=== PATIENT | female | born 1955 | race Caucasian/White ===

== ENCOUNTER 2016-04-27 10:21 | Emergency (ER) | payer BC, OTHER ==
[~2016-04-27] VITALS: Ht 157.5 cm; Wt 58.6 kg
[2016-04-27 10:31] VITALS: BP 121/77; PULSE 75; RESP 16; TEMP 98.1; O2SAT 100
[2016-04-27] MEDS ORDERED: BUSP15TA PO (10:46)
[2016-04-27] MEDS ORDERED: LEVE500 PO (10:46)
[2016-04-27] MEDS ORDERED: AMIT25TA9 PO (10:46)
[2016-04-27] MEDS ORDERED: NAPR500 PO (10:46)
[2016-04-27] MEDS ORDERED: LEXA20TA PO (10:46)
[2016-04-27] MEDS ORDERED: DILA100C PO (10:46)
[2016-04-27] MEDS ORDERED: ERYTOIN10 RIGHT EYE (11:15)
--- NOTE | 2016-04-27 11:17 | PD ---
HPI Chief Complaint: Eye Problems/Injury Time Seen by Provider: 11:15 Travel History International Travel<30 days: No Contact w/Intl Traveler<30days: No Traveled to known affect area: No History of Present Illness HPI 60-year-old female presents to the emergency department for evaluation of right eye itching and burning for 4 days. Patient states that she has some swelling of her upper eyelid and thought she had a stye so she used some over-the- counter stye cream which did not improve her symptoms. She states that she is concerned she may have pinkeye as her left eye started to feel irritated as well. States that she did have some increased tearing of the right eye. Denies any blurred vision, decreased vision, eye pain, photophobia, cough or cold symptoms. She does not wear contact lenses. No other complaints. PFSH Past Medical History Arthritis: Yes Anxiety: Yes Depression: Yes Chemotherapy: No Medical other: Yes (chronic neck and back pain) Migraines: Yes Radiation Therapy: Yes Seizures: Yes Tetanus Vaccination: < 5 Years Influenza Vaccination: Yes ?: Not Menopausal: Yes Past Surgical History Gynecologic Surgery: Yes (left breast lumpectomy r/t breast cancer 1999) Hysterectomy: Yes Joint Replacement: Yes (right knee) Other Surgery: Yes (neck and back surgery) Social History Alcohol Use: Yes (occas. wine) Tobacco Use: Yes (1 ppd) Substance Use: Yes (states smoke weed occas.) Allergies-Medications (Allergen,Severity, Reaction): Coded Allergies: Penicillin (Verified Allergy, Severe, throat swelling, 04/27/16) Reported Meds & Prescriptions Reported Meds & Active Scripts Active Erythromycin Opth Oint 5 Mg/Gm Oint 1 Applic RIGHT EYE BID Reported Naprosyn (Naproxen) 500 Mg Tab 500 Mg PO BID PRN Lexapro (Escitalopram Oxalate) 20 Mg Tab 20 Mg PO DAILY Amitriptyline (Amitriptyline HCl) 25 Mg Tab 25 Mg PO HS Buspirone (Buspirone HCl) 15 Mg Tab 15 Mg PO BID Keppra (Levetiracetam) 500 Mg Tab 500 Mg PO BID Dilantin (Phenytoin Extended) 100 Mg Cap 200 Mg PO BID Review of Systems Except as stated in HPI: all other systems reviewed are Neg Physical Exam Narrative GENERAL: Well-nourished and well-developed pleasant female patient in no acute distress who is nontoxic appearing. SKIN: Warm and dry. HEAD: Normocephalic and atraumatic. EYES: Internal stye to right upper eyelid with some mild erythema of the upper eyelid. No injection, drainage, or hyphema noted. PERRLA. EOMI. visual acuity is equal bilaterally. ENT: No nasal drainage noted. Oropharynx is clear. NECK: Supple and the trachea is midline. CARDIOVASCULAR: Regular rate and rhythm. RESPIRATORY: Breath sounds are equal bilaterally with no accessory muscle use, wheezing, rhonchi, or crackles. MUSCULOSKELETAL: No obvious deformities, swelling, cyanosis, or ecchymosis is present throughout the upper and lower extremities. Patient has full range of motion without any signs of neurovascular compromise. NEUROLOGICAL: Awake, alert, and oriented. Normal speech and gait. Cranial nerves are grossly intact. Data Data Last Documented VS Vital Signs Date Time Temp Pulse Resp B/P Pulse Ox O2 Delivery O2 Flow Rate FiO2 04/27/16 10:40 73 16 04/27/16 10:31 98.1 121/77 100 MDM Medical Decision Making Medical Screen Exam Complete: Yes Emergency Medical Condition: Yes Differential Diagnosis Hordeolum versus chalazion versus conjunctivitis Narrative Course 60-year-old female presents to the emergency department for evaluation of right eye burning and itching. Patient is afebrile, vital signs are stable. She has a stye to her right upper eyelid. We'll give the patient erythromycin ointment and discussed supportive care. 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 Patient verbalizes understanding and agreement with treatment plan. Diagnosis Primary Impression: Hordeolum of right eye Qualified Code: H00.021 - Hordeolum internum of right upper eyelid Referrals: Primary Care Physician Patient Instructions: General Instructions Additional Instructions: Apply warm compresses. Use ointment as prescribed. Follow-up with your Primary Care Physician or an drill press set up operator radial if symptoms persist. Return to the ED for any acute worsening of symptoms. Med/Other Pt SpecificInfo: Prescription(s) given Scripts Erythromycin Opth Oint 5 Mg/Gm Oint1 Applic RIGHT EYE BID #1 TUBE Ref 0 Prov:Nura Black MD 04/27/16 Disposition: 01 DISCHARGE HOME Condition: Stable Vickie Estrella Apr 27, 2016 11:17
== END 2016-04-27 11:24 | disposition home or self-care (01) ==
LOC: PHEFT 10:21
DX: H00.021 Hordeolum internum right upper eyelid (principal); F17.200 Nicotine dependence, unspecified, uncomplicated; Z87.39 Personal history of other diseases of the musculoskeletal system and connective tissue; Z86.59 Personal history of other mental and behavioral disorders; Z86.69 Personal history of other diseases of the nervous system and sense organs
CPT/HCPCS: 99283

== ENCOUNTER 2016-05-05 10:53 | Emergency (ER) | payer OTHER ==
[~2016-05-05 10:53] MED LIST: AMIT25TA9 PO; BUSP15TA PO; DILA100C PO; ERYTOIN10 RIGHT EYE; LEVE500 PO; LEXA20TA PO; NAPR500 PO
[2016-05-05 11:11] VITALS: BP 138/81; PULSE 89; RESP 20; TEMP 99.2; O2SAT 97
[2016-05-05] MEDS ORDERED: methylPREDNISolone SOD SUCC 125 MG/2 ML VIAL IVP ONE (11:30)
[2016-05-05] MEDS ORDERED: SODIUM CHLORIDE 0.9% FLUSH 5 ML FLUSH IVF PRN (11:30)
--- NOTE | 2016-05-05 11:33 | PD ---
HPI . Chest congestion Chief Complaint: Respiratory Symptoms Time Seen by Provider: 11:24 Travel History International Travel<30 days: No Contact w/Intl Traveler<30days: No Traveled to known affect area: No History of Present Illness HPI Patient presents with about a 2 day history of cough and congestion. She has associated fevers and chills, myalgias, malaise, poor appetite. She's been using some [id number] medications without relief. PFSH Past Medical History Arthritis: Yes Anxiety: Yes Depression: Yes Chemotherapy: No Migraines: Yes Radiation Therapy: Yes Seizures: Yes Influenza Vaccination: Yes ?: Not Menopausal: Yes Past Surgical History Gynecologic Surgery: Yes (left breast lumpectomy r/t breast cancer 1999) Hysterectomy: Yes Joint Replacement: Yes (right knee) Other Surgery: Yes (neck and back surgery) Social History Alcohol Use: Yes (occas. wine) Tobacco Use: Yes (1 ppd) Substance Use: No Allergies-Medications (Allergen,Severity, Reaction): Coded Allergies: Penicillin (Verified Allergy, Severe, throat swelling, 04/27/16) Reported Meds & Prescriptions Reported Meds & Active Scripts Active Reported Lexapro (Escitalopram Oxalate) 20 Mg Tab 20 Mg PO DAILY Buspirone (Buspirone HCl) 15 Mg Tab 15 Mg PO BID Keppra (Levetiracetam) 500 Mg Tab 500 Mg PO BID Dilantin (Phenytoin Extended) 100 Mg Cap 200 Mg PO BID Review of Systems Except as stated in HPI: all other systems reviewed are Neg General / Constitutional: Positive: Fever, Chills, Other (malaise) HENT: Positive: Congestion Respiratory: Positive: Cough, Shortness of Breath, Wheezing Gastrointestinal: Positive: Loss of Appetite Musculoskeletal: Positive: Myalgias Physical Exam Narrative GENERAL: Healthy-appearing woman asthmatic sounding cough. SKIN: Warm and dry. HEAD: Atraumatic. Normocephalic. EYES: Pupils equal and round. ENT: No nasal bleeding or discharge. Mucous membranes pink and moist. NECK: Trachea midline. Neck is supple. CARDIOVASCULAR: Regular rate and rhythm. Heart sounds are normal. RESPIRATORY: No accessory muscle use. Lungs have good air movement with diffuse expiratory wheezing. Some of the wheezing clears with coughing. GASTROINTESTINAL: Abdomen soft, non-tender, nondistended. MUSCULOSKELETAL: No obvious deformities. No edema. NEUROLOGICAL: Awake and alert. No obvious cranial nerve deficits. Motor grossly within normal limits. Normal speech. PSYCHIATRIC: Appropriate mood and affect; insight and judgment normal. Data Data Last Documented VS Vital Signs Date Time Temp Pulse Resp B/P Pulse Ox O2 Delivery O2 Flow Rate FiO2 05/05/16 11:44 83 18 99 Room Air 05/05/16 11:11 99.2 138/81 Orders Complete Blood Count With Diff (05/05/16 11:27) Basic Metabolic Panel (Bmp) (05/05/16 11:27) Iv Access Insert/Monitor (05/05/16 11:27) Chest, Single Ap (05/05/16 11:27) Sodium Chloride 0.9% Flush (Ns Flush) (05/05/16 11:30) Methylprednisolone So Succ Inj (Solumedr (05/05/16 11:30) Albuterol-Ipratropium Neb (Duoneb Neb) (05/05/16 11:30) Labs Laboratory Tests Test 05/05/16 11:32 White Blood Count 11.6 TH/MM3 Red Blood Count 4.13 MIL/MM3 Hemoglobin 13.8 GM/DL Hematocrit 40.7 % Mean Corpuscular Volume 98.5 FL Mean Corpuscular Hemoglobin 33.4 PG Mean Corpuscular Hemoglobin 34.0 % Concent Red Cell Distribution Width 12.6 % Platelet Count 210 TH/MM3 Mean Platelet Volume 9.7 FL Neutrophils (%) (Auto) 74.1 % Lymphocytes (%) (Auto) 16.8 % Monocytes (%) (Auto) 6.2 % Eosinophils (%) (Auto) 0.5 % Basophils (%) (Auto) 2.4 % Neutrophils # (Auto) 8.6 TH/MM3 Lymphocytes # (Auto) 1.9 TH/MM3 Monocytes # (Auto) 0.7 TH/MM3 Eosinophils # (Auto) 0.1 TH/MM3 Basophils # (Auto) 0.3 TH/MM3 CBC Comment DIFF FINAL Differential Comment Sodium Level 143 MEQ/L Potassium Level 3.4 MEQ/L Chloride Level 107 MEQ/L Carbon Dioxide Level 28.4 MEQ/L Anion Gap 8 MEQ/L Blood Urea Nitrogen 9 MG/DL Creatinine 0.51 MG/DL Estimat Glomerular Filtration 123 ML/MIN Rate Random Glucose 98 MG/DL Calcium Level 9.1 MG/DL MDM Medical Decision Making Medical Screen Exam Complete: Yes Emergency Medical Condition: Yes Differential Diagnosis Differential diagnosis includes but is not limited to viral respiratory illness , bronchitis, pneumonia, allergies, CHF, asthma/COPD. Narrative Course Patient presents for evaluation and treatment of cough. Clinically, she has bronchitis. Last Impressions Chest X-Ray 05/05/16 1127 Signed Impressions: Service Date/Time: Thursday, May 05, 2016 11:36 - CONCLUSION: No acute disease. Ernesto Garcia MD The chest x-ray was independently viewed by me. CBC & BMP Diagram 05/05/16 11:32 Diagnosis Primary Impression: Bronchitis Patient Instructions: Acute Bronchitis (ED), General Instructions Med/Other Pt SpecificInfo: Prescription(s) given Scripts Promethazine-Codeine Liq 6.25-10 Mg/5 Ml Syrp10 Ml PO Q6H PRN (cough) #180 ML Ref 0 Prov:Ilana Jj MD 05/05/16 Guaifenesin ER 12 HR 1,200 Mg Taber1,200 Mg PO BID #30 TAB Ref 0 Prov:Ilana Jj MD 05/05/16 Albuterol 18 GM Inh (Ventolin Hfa 18 GM Inh)90 Mcg/Act Aer2 Puff INH Q4H PRN ( SHORTNESS OF BREATH) #1 INHALER Ref 0 Prov:Ilana Jj MD 05/05/16 Prednisone (48) 10 mg tab Dose Pack 10 Mg Dspk10 Mg PO DIRECTED #1 DSPK Ref 0 Prov:Ilana Jj MD 05/05/16 Disposition: 01 DISCHARGE HOME Condition: Stable Ilana Jj MD May 05, 2016 11:33
[2016-05-05] MEDS: RESP: ALBUTEROL 2.5 MG/IPRATROPIUM 0.5 MG NEB (SCH) INH ×2 (11:37→11:41)
[2016-05-05 11:44] VITALS: PULSE 83; RESP 18; O2SAT 99
[2016-05-05 11:55] LABS: AUTOMATED NEUTROPHIL # 8.6 TH/MM3 (1.8-7.7); BASOPHIL # 0.3 TH/MM3 (0-0.2); BASOPHIL % 2.4 % (0.0-2.0); EOSINOPHIL # 0.1 TH/MM3 (0-0.4); EOSINOPHIL % 0.5 % (0.0-4.0); HEMATOCRIT 40.7 % (35.0-46.0); LYMPH % 16.8 % (9.0-44.0); LYMPHOCYTE # 1.9 TH/MM3 (1.0-4.8); MEAN CELL VOLUME 98.5 FL (80.0-100.0); MEAN CORPUSCULAR HEMOGLOBIN 33.4 PG (27.0-34.0); MONO % 6.2 % (0.0-8.0); NEUT % 74.1 % (16.0-70.0); PLATELET COUNT 210 TH/MM3 (150-450); RED BLOOD COUNT 4.13 MIL/MM3 (4.00-5.30); RED CELL DISTRIBUTION WIDTH 12.6 % (11.6-17.2); WHITE BLOOD COUNT 11.6 TH/MM3 (4.0-11.0)
--- NOTE | 2016-05-05 11:55 | RADHPO ---
EXAM DATE/TIME: 05/05/2016 11:36 [facility] COMPARISON: No previous studies available for comparison. INDICATIONS : Short of breath, cold, chills, cough. MEDICAL HISTORY : Arthritis. SURGICAL HISTORY : Hysterectomy. Fusion, cervical. Right knee.Lumpectomy. ENCOUNTER: Initial ACUITY: 1 day PAIN SCORE: 0/10 LOCATION: chest FINDINGS: A single view of the chest demonstrates the lungs to be symmetrically aerated without evidence of mas s, infiltrate or effusion. The cardiomediastinal contours are unremarkable. Osseous structures are intact. CONCLUSION: No acute disease. Ernesto Garcia MD on May 05, 2016 at 11:52 Board Certified Radiologist. This report was verified electronically.
[2016-05-05 11:57] LABS: HEMO FLAGS DIFF FINAL
[2016-05-05 12:11] LABS: POTASSIUM 3.4 MEQ/L (3.5-5.1)
[2016-05-05 12:14] LABS: BICARBONATE 28.4 MEQ/L (21.0-32.0)
[2016-05-05] MEDS ORDERED: VENTAER INH (12:24)
[2016-05-05] MEDS ORDERED: PRED10PA2 PO (12:24)
[2016-05-05] MEDS ORDERED: GUAI10TA PO (12:24)
[2016-05-05] MEDS ORDERED: PROM6.256 PO (12:24)
[2016-05-05 12:42] VITALS: BP 126/70
== END 2016-05-05 12:44 | disposition home or self-care (01) ==
LOC: PHED 10:53
DX: J40 Bronchitis, not specified as acute or chronic (principal); R50.9 Fever, unspecified; M79.1 Myalgia; R53.81 Other malaise; R63.0 Anorexia; F17.200 Nicotine dependence, unspecified, uncomplicated; Z87.39 Personal history of other diseases of the musculoskeletal system and connective tissue; Z86.59 Personal history of other mental and behavioral disorders; Z86.69 Personal history of other diseases of the nervous system and sense organs
CPT/HCPCS: 71010; 80048; 85025; 94640; 94664; 96374; 99283; J2930

== ENCOUNTER 2016-05-25 17:02 | Emergency (ER) | payer OTHER ==
[~2016-05-25] VITALS: Ht 157.5 cm; Wt 58.0 kg
[~2016-05-25 17:02] MED LIST changes: -AMIT25TA9 PO; -ERYTOIN10 RIGHT EYE; +GUAI10TA PO; -NAPR500 PO; +PRED10PA2 PO; +PROM6.256 PO; +VENTAER INH
[2016-05-25 17:13] VITALS: BP 126/85; PULSE 85; RESP 17; TEMP 98.2; O2SAT 97
[2016-05-25 17:56] LABS: BLOOD, URINE TRACE (NEG); GLUCOSE,URINE NEG (NEG); KETONE, URINE NEG (NEG); NITRITE,URINE NEG (NEG); PH, URINE 7.5 (5.0-8.5)
[2016-05-25 18:01] LABS: BACTERIA, URINE FEW /hpf; COMMENT (UR) CULT NOT INDICATED; CULTURE IF INDICATED CULT NOT INDICATED; URINE COLOR YELLOW (YELLW/STRAW)
[2016-05-25 19:55] VITALS: BP 141/84; PULSE 80; RESP 16; O2SAT 97
[2016-05-25 20:00] VITALS: RESP 16; O2SAT 97
[2016-05-25] MEDS ORDERED: PROP80TA PO (21:06)
[2016-05-25] MEDS ORDERED: AMIT25TA9 PO (21:06)
[2016-05-25] MEDS ORDERED: RIZA5TAB PO (21:06)
[2016-05-25] MEDS ORDERED: SODIUM CHLORIDE 0.9% FLUSH 5 ML FLUSH IVF PRN (21:15)
--- NOTE | 2016-05-25 21:17 | PD ---
HPI Chief Complaint: Abdominal Pain Time Seen by Provider: 21:10 Travel History International Travel<30 days: No Contact w/Intl Traveler<30days: No Traveled to known affect area: No History of Present Illness HPI 60-year-old female presents to the emergency department for complaint of 3 days of periumbilical pain. Patient's had associated nausea without vomiting. Patient denies fever or chills. Patient last bowel movement was 2 days ago which is atypical for her because she reports normally she has a bowel movement every day. No report of hematemesis coffee-ground emesis bilious emesis melena or hematochezia. Patient's had previous hysterectomy otherwise no surgeries per report. Patient denies any chest pain or shortness of breath. No respiratory illness symptoms. No pleuritic pain. Patient has noted some mild left flank discomfort no hematuria dysuria frequency urgency or pelvic pain. Patient rates discomfort as moderate to severe in nature. Patient notes that she feels hungry but eating makes symptoms worse. Patient has had colonoscopy in the remote past that identified diverticulosis denies history of gastritis peptic ulcer disease biliary colic cholelithiasis or pancreatitis. Patient states antacids provided no relief. PFSH Past Medical History Narrative Medical Arthritis anxiety/depression bronchitis tobaccoism diminished hearing seizures migraines left breast cancer lumpectomy with radiation therapy partial hysterectomy neck surgery back surgery; alcohol use tobacco use marijuana use; nursing notes reviewed Arthritis: Yes Anxiety: Yes Depression: Yes Chemotherapy: No Diminished Hearing: Yes ([facility] RIGHT EAR) Migraines: Yes Radiation Therapy: Yes Seizures: Yes Tetanus Vaccination: > 5 Years ?: Not Menopausal: Yes : 3 Para: 3 Past Surgical History Gynecologic Surgery: Yes (left breast lumpectomy r/t breast cancer 1999) Hysterectomy: Yes (PARTIAL) Joint Replacement: Yes (right knee) Other Surgery: Yes (neck and back surgery) Social History Alcohol Use: Yes (occas. wine) Tobacco Use: Yes (1 ppd) Substance Use: Yes ([facility] USE) Allergies-Medications (Allergen,Severity, Reaction): Coded Allergies: Penicillin (Verified Allergy, Severe, throat swelling, 05/25/16) Reported Meds & Prescriptions Reported Meds & Active Scripts Active Carafate Liq (Sucralfate) 1 Gm/10 Ml Susp 1 Gm PO QID 7 Days on empty stomach Reported Rizatriptan (Rizatriptan Benzoate) 5 Mg Tab 5 Mg PO DAILY PRN Propranolol (Propranolol HCl) 80 Mg Tab 80 Mg PO DAILY Amitriptyline (Amitriptyline HCl) 25 Mg Tab 25 Mg PO HS Lexapro (Escitalopram Oxalate) 20 Mg Tab 20 Mg PO DAILY Buspirone (Buspirone HCl) 15 Mg Tab 15 Mg PO BID Keppra (Levetiracetam) 500 Mg Tab 500 Mg PO BID Dilantin (Phenytoin Extended) 100 Mg Cap 200 Mg PO BID Review of Systems Except as stated in HPI: all other systems reviewed are Neg General / Constitutional: No: Fever, Chills HENT: No: Congestion Cardiovascular: No: Chest Pain or Discomfort, Diaphoresis, Dyspnea on exertion , Edema Respiratory: No: Cough, Shortness of Breath, Wheezing, Pleuritic Pain Gastrointestinal: Positive: Nausea, Abdominal Pain, Constipation (mild), No: Vomiting, Diarrhea, Hematemesis, Hematochezia, Indigestion, Loss of Appetite Genitourinary: No: Urgency, Frequency, Dysuria Musculoskeletal: No: Myalgias, Arthralgias Skin: No Rash Neurologic: No: Weakness Psychiatric: No: Anxiety Endocrine: No: Heat Intolerance Hematologic/Lymphatic: No: Easy Bruising Physical Exam Narrative GENERAL: Well-developed well-nourished female in no acute distress no respiratory distress SKIN: Warm and dry. HEAD: Normocephalic. EYES: No scleral icterus. No injection or drainage. NECK: Supple, trachea midline. No JVD or lymphadenopathy. CARDIOVASCULAR: Regular rate and rhythm without murmurs, gallops, or rubs. RESPIRATORY: Breath sounds equal bilaterally. No accessory muscle use. GASTROINTESTINAL: Abdomen soft, mild tenderness reproducible to palpation around the periumbilical region without guarding or rebound or pulsatile mass, nondistended. MUSCULOSKELETAL: No cyanosis, or edema. Radial and dorsalis pedis pulses 2+ to palpation. BACK: Nontender without obvious deformity. No CVA tenderness. Data Data Last Documented VS Vital Signs Date Time Temp Pulse Resp B/P Pulse Ox O2 Delivery O2 Flow Rate FiO2 05/25/16 23:25 76 16 154/89 98 Room Air 05/25/16 17:13 98.2 Orders Urinalysis - C+S If Indicated (05/25/16 17:17) Complete Blood Count With Diff (05/25/16 21:10) Comprehensive Metabolic Panel (05/25/16 21:10) Lipase (05/25/16 21:10) Lactic Acid (05/25/16 21:10) Prothrombin Time / Inr (Pt) (05/25/16 21:10) Act Partial Throm Time (Ptt) (05/25/16 21:10) Ct Abd/Pel W Iv Contrast(Rout) (05/25/16 21:10) Iv Access Insert/Monitor (05/25/16 21:10) Ecg Monitoring (05/25/16 21:10) Oximetry (05/25/16 21:10) Sodium Chloride 0.9% Flush (Ns Flush) (05/25/16 21:15) Phenytoin (Dilantin) (05/25/16 21:10) Phenytoin (Dilantin) (05/25/16 22:15) Iohexol 350 Inj (Omnipaque 350 Inj) (05/25/16 23:04) Sucralfate Liq (Carafate Liq) (05/25/16 23:15) Labs Laboratory Tests Test 05/25/16 05/25/16 05/25/16 17:20 20:50 21:40 Urine Color YELLOW Urine Turbidity CLEAR Urine pH 7.5 Urine Specific [place] 1.015 Urine Protein NEG mg/dL Urine Glucose (UA) NEG mg/dL Urine Ketones NEG mg/dL Urine Occult Blood TRACE Urine Nitrite NEG Urine Bilirubin NEG Urine Leukocyte Esterase NEG Urine RBC 4-9 /hpf Urine WBC 3-5 /hpf Urine Squamous Epithelial 6-8 /hpf Cells Urine Bacteria FEW /hpf Microscopic Urinalysis Comment CULT NOT INDICATED White Blood Count 8.8 TH/MM3 Red Blood Count 4.51 MIL/MM3 Hemoglobin 14.9 GM/DL Hematocrit 44.5 % Mean Corpuscular Volume 98.6 FL Mean Corpuscular Hemoglobin 33.0 PG Mean Corpuscular Hemoglobin 33.5 % Concent Red Cell Distribution Width 13.1 % Platelet Count 179 TH/MM3 Mean Platelet Volume 9.7 FL Neutrophils (%) (Auto) 63.5 % Lymphocytes (%) (Auto) 28.3 % Monocytes (%) (Auto) 4.4 % Eosinophils (%) (Auto) 2.1 % Basophils (%) (Auto) 1.7 % Neutrophils # (Auto) 5.6 TH/MM3 Lymphocytes # (Auto) 2.5 TH/MM3 Monocytes # (Auto) 0.4 TH/MM3 Eosinophils # (Auto) 0.2 TH/MM3 Basophils # (Auto) 0.1 TH/MM3 CBC Comment DIFF FINAL Differential Comment Prothrombin Time 10.5 SEC Prothromb Time International 1.0 RATIO Ratio Activated Partial 29.1 SEC Thromboplast Time Sodium Level 142 MEQ/L Potassium Level 3.7 MEQ/L Chloride Level 104 MEQ/L Carbon Dioxide Level 30.8 MEQ/L Anion Gap 7 MEQ/L Blood Urea Nitrogen 9 MG/DL Creatinine 0.61 MG/DL Estimat Glomerular Filtration 100 ML/MIN Rate Random Glucose 82 MG/DL Calcium Level 8.8 MG/DL Total Bilirubin 0.4 MG/DL Aspartate Amino Transf 18 U/L (AST/SGOT) Alanine Aminotransferase 30 U/L (ALT/SGPT) Alkaline Phosphatase 107 U/L Total Protein 7.2 GM/DL Albumin 3.4 GM/DL Lipase 213 U/L Phenytoin (Dilantin) Level 7.8 MCG/ML Lactic Acid Level 0.6 mmol/L [facility] Medical Decision Making Medical Screen Exam Complete: Yes Emergency Medical Condition: Yes Medical Record Reviewed: Yes Interpretation(s) CBC & BMP Diagram 05/25/16 20:50 Vital Signs Date Time Temp Pulse Resp B/P Pulse Ox O2 Delivery O2 Flow Rate FiO2 05/25/16 21:00 16 05/25/16 20:00 16 97 Room Air 05/25/16 19:55 80 16 141/84 97 Room Air 05/25/16 17:13 98.2 85 17 126/85 97 lactic acid: 0.6, not elevated dilantin level: 7.8, mildly subtherapeutic CT abd/pel: CONCLUSION: Unremarkable examination for patient's age. Sam Cota MD on May 25, 2016 at 22:51 Board Certified Radiologist. This report was verified electronically. Differential Diagnosis Abdominal pain, pancreatitis, gastritis, peptic ulcer disease, biliary colic, choledocholithiasis, colitis, diverticulitis, renal colic, pyelonephritis also to consider ischemic colitis, abdominal or aneurysm Narrative Course IV access obtained specimens collected and sent for resulting imaging studies ordered Evening dose of Dilantin is indicated and phenytoin level is mildly subtherapeutic at 7.8 patient administered evening dose of Dilantin milligrams by mouth Lab values found grossly normal range lactic acid not elevated; CT imaging study pending Patient informed of imaging results which reveals no acute intra-abdominal or pelvic etiology of complaint of pain; patient given one-time dose of Carafate; patient stable for outpatient management and follow-up with primary care provider. Diagnosis Primary Impression: Gastritis Referrals: Primary Care Physician call for appointment Patient Instructions: General Instructions Med/Other Pt SpecificInfo: Prescription(s) given Scripts Sucralfate Liq (Carafate Liq)1 Gm/10 Ml Susp1 Gm PO QID 7 Days Ref 0 on empty stomach Prov:Ramonita Metz MD 05/25/16 Disposition: 01 DISCHARGE HOME Condition: Stable Ramonita Metz MD May 25, 2016 21:17 Condition: Ramonita Ritter MD May 25, 2016 21:17
[2016-05-25 21:45] LABS: AUTOMATED NEUTROPHIL # 5.6 TH/MM3 (1.8-7.7); BASOPHIL # 0.1 TH/MM3 (0-0.2); BASOPHIL % 1.7 % (0.0-2.0); EOSINOPHIL # 0.2 TH/MM3 (0-0.4); EOSINOPHIL % 2.1 % (0.0-4.0); HEMATOCRIT 44.5 % (35.0-46.0); HEMO FLAGS DIFF FINAL; LYMPH % 28.3 % (9.0-44.0); LYMPHOCYTE # 2.5 TH/MM3 (1.0-4.8); MEAN CELL VOLUME 98.6 FL (80.0-100.0); MEAN CORPUSCULAR HGB CONC 33.5 % (32.0-36.0); MONO % 4.4 % (0.0-8.0); NEUT % 63.5 % (16.0-70.0); PLATELET COUNT 179 TH/MM3 (150-450); RED BLOOD COUNT 4.51 MIL/MM3 (4.00-5.30); RED CELL DISTRIBUTION WIDTH 13.1 % (11.6-17.2); WHITE BLOOD COUNT 8.8 TH/MM3 (4.0-11.0)
[2016-05-25 21:54] LABS: CHLORIDE 104 MEQ/L (98-107); POTASSIUM 3.7 MEQ/L (3.5-5.1); SODIUM (NA) 142 MEQ/L (136-145)
[2016-05-25 21:58] LABS: ANION GAP 7 MEQ/L (5-15); BICARBONATE 30.8 MEQ/L (21.0-32.0); BLOOD UREA NITROGEN 9 MG/DL (7-18)
[2016-05-25 21:59] LABS: APTT (PATIENT) 29.1 SEC (24.3-30.1); PROTHROMBIN TIME - PATIENT 10.5 SEC (9.8-11.6)
[2016-05-25 22:01] LABS: ALT (GPT) 30 U/L (10-53); AST (GOT) 18 U/L (15-37); GLOMERULAR FILTRATION RATE 100 ML/MIN (>89)
[2016-05-25 22:02] LABS: TOTAL BILIRUBIN ADULT 0.4 MG/DL (0.2-1.0)
[2016-05-25 22:04] LABS: ALKALINE PHOSPHATASE 107 U/L (45-117)
[2016-05-25] MEDS ORDERED: PHENYTOIN SODIUM 100 MG CAP PO ONE (22:15)
--- NOTE | 2016-05-25 22:54 | RADHPO ---
EXAM DATE/TIME: 05/25/2016 22:30 [facility] COMPARISON: No previous studies available for comparison. INDICATIONS : Abdomen pain. IV CONTRAST: 91 cc Omnipaque 350 (iohexol) IV ORAL CONTRAST: No oral contrast ingested. RADIATION DOSE: 5.37 CTDIvol (mGy) MEDICAL HISTORY : None SURGICAL HISTORY : Hysterectomy. ENCOUNTER: Initial ACUITY: 1 day PAIN SCALE: 4/10 LOCATION: abdomen TECHNIQUE: Volumetric scanning of the abdomen and pelvis was performed. Using automated exposure control and ad justment of the mA and/or kV according to patient size, radiation dose was kept as low as reasonably achievable to obtain optimal diagnostic quality images. FINDINGS: LOWER LUNGS: The visualized lower lungs are clear. LIVER: Homogeneous density without lesion. There is no dilation of the biliary tree. No calcified gallston es. SPLEEN: Normal size without lesion. PANCREAS: Within normal limits. KIDNEYS: Normal in size and shape. There is no mass, stone or hydronephrosis. ADRENAL GLANDS: Within normal limits. VASCULAR: There is no aortic aneurysm. Mild atherosclerotic changes. BOWEL/MESENTERY: The stomach, small bowel, and colon demonstrate no acute abnormality. There is no free intraperitone al air or fluid. No inflammatory changes are demonstrated. ABDOMINAL WALL: Within normal limits. RETROPERITONEUM: There is no lymphadenopathy. BLADDER: No wall thickening or mass. REPRODUCTIVE: Within normal limits. INGUINAL: There is no lymphadenopathy or hernia. MUSCULOSKELETAL: Within normal limits for patient age. There are primary degenerative changes of the lumbar spine with curvature to the right. CONCLUSION: Unremarkable examination for patient's age. Sam Cota MD on May 25, 2016 at 22:51 Board Certified Radiologist. This report was verified electronically.
[2016-05-25] MEDS ORDERED: IOHEXOL 350 MG/ML 10 ML VIAL (for RAD DIAG) IV ONE (23:04)
[2016-05-25] MEDS ORDERED: SUCRALFATE 1 GM/10 ML CUP PO ONE (23:15)
[2016-05-25] MEDS ORDERED: CARA1SUS3 PO (23:15)
[2016-05-25 23:25] VITALS: BP 154/89; PULSE 76; RESP 16; O2SAT 98
== END 2016-05-25 23:38 | disposition home or self-care (01) ==
LOC: PHED 17:02
DX: K29.70 Gastritis, unspecified, without bleeding (principal); H91.91 Unspecified hearing loss, right ear; F17.210 Nicotine dependence, cigarettes, uncomplicated
CPT/HCPCS: 74177; 80053; 80185; 81001; 83605; 83690; 85025; 85610; 85730; 99284; Q9967

== ENCOUNTER 2016-09-18 06:06 | Day surgery (SDC) | payer OTHER ==
[~2016-09-18] VITALS: Ht 154.9 cm; Wt 59.7 kg
[~2016-09-18 06:06] MED LIST changes: +AMIT25TA9 PO; +CARA1SUS3 PO; -GUAI10TA PO; -PRED10PA2 PO; -PROM6.256 PO; +PROP80TA PO; +RIZA5TAB PO; -VENTAER INH
[2016-09-18 06:40] VITALS: BP 127/75; PULSE 79; RESP 18; TEMP 98; O2SAT 100
[2016-09-18] MEDS ORDERED: ASPI81CH37 CHEW (06:43)
[2016-09-18] MEDS ORDERED: MULTTAB67 PO (06:43)
[2016-09-18] MEDS ORDERED: BUSP5TAB PO (06:43)
[2016-09-18] MEDS ORDERED: CLOP75TA PO (06:43)
[2016-09-18] MEDS ORDERED: MIDAZOLAM HCL 5 MG/5 ML VIAL ONE (08:09)
[2016-09-18] MEDS ORDERED: HEPARIN-NS/PF INJ 500 ML ONE (08:14)
[2016-09-18] MEDS ORDERED: IOHEXOL 350 MG/ML 100 ML BTL (for Cath Lab) OTHER ONE (08:36)
[2016-09-18] MEDS ORDERED: HEPARIN SODIUM - IV 10,000 UNITS/10 ML VIAL ONE (08:52)
[2016-09-18] MEDS ORDERED: MIDAZOLAM HCL 2 MG/2 ML VIAL ONE (09:29)
[2016-09-18] MEDS ORDERED: CLOPIDOGREL 75 MG TAB ONE (09:38)
[2016-09-18] MEDS ORDERED: SODIUM CHLOR 0.9% 1000 ML INJ 1,000 ML IV SCH (09:44)
[2016-09-18] MEDS ORDERED: MORPHINE SULFATE 4 MG/ML INJ IV PUSH PRN (09:45)
[2016-09-18] MEDS ORDERED: MISC INFORMATION XX ONE (09:45)
[2016-09-18] MEDS ORDERED: ACETAMINOPHEN 325 MG TAB PO PRN (09:45)
[2016-09-18] MEDS ORDERED: oxyCODONE/ACETAMINOPHEN 5 MG/325 MG TAB PO PRN (09:45)
[2016-09-18] MEDS ORDERED: SODIUM CHLOR 0.9% 250 ML INJ 250 ML IV PRN (09:45)
[2016-09-18] MEDS ORDERED: cloNIDine HCL 0.1 MG TAB PO PRN (09:45)
[2016-09-18] MEDS ORDERED: ONDANSETRON HCL 4 MG/2 ML VIAL IV PRN (09:45)
[2016-09-18] MEDS ORDERED: METOCLOPRAMIDE HCL 10 MG/2 ML VIAL IV PRN (09:45)
[2016-09-18] MEDS ORDERED: LIDOCAINE 2% JELLY 30 ML TUBE TOP PRN (09:45)
[2016-09-18] MEDS ORDERED: ATROPINE SULFATE 1 MG/ML VIAL IV PRN (09:45)
[2016-09-18] MEDS ORDERED: LORazepam 2 MG/ML VIAL IV PRN (09:45)
[2016-09-18] MEDS ORDERED: BACITRACIN OINT 0.9 GM PKT TOP ONE (09:45)
[2016-09-18] MEDS ORDERED: oxyCODONE/ACETAMINOPHEN 10 MG/325 MG TAB PO PRN (09:45)
[2016-09-18] MEDS ORDERED: hydrALAZINE HCL 20 MG/ML VIAL IV PUSH PRN (09:45)
[2016-09-18] MEDS ORDERED: LIDOCAINE HCL 1% 50 ML VIAL INFIL PRN (09:45)
--- NOTE | 2016-09-18 09:46 | CATHPROC ---
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 2.0MM *[id number] CARDIOVASCULAR VPR-GW-14 08:59 WIRE, FIRM (VIPER) 335 Used [employer]. *[id number] 532-523 08:12 CORDIS/ ANUJ RIM SUPER TORQUE CATHETER FR 5 Used *[id number] *[id number] BALLOON, ADMIRAL EXTREME 6 [id number] 09:10 [employer] 80CM Used X 40 80CM *[id number] BALLOON, ADMIRAL IN.PACT 6 X [id number] 09:18 [employer] 130CM Used 80 130CM *[id number] CATHETER, FR5 TRAILBLAZER [id number] 08:58 [employer] 135CM Used .035 *[id number] 08:12 MALLINCKRODT SYRINGE, ANGIOMAT 150ML 150ML [id number] Used [id number] 08:12 [employer] INDUSTRIES PACK, CCL CUSTOM * Used *[id number] 08:12 [employer] PACER PEN, SKIN DUAL W/ RULER * Used *[id number] 09:11 X BODY 30 LON INDEFLATOR Used *[id number]- 09:22 X BODY SHEATH, FR6.5 PRELUDE 11CM FR 6.5 038ACT Used *[id number] 08:12 X BODY WIRE, EXCHANGE 260CM 3MMJ 260CM Used *[id number] 08:12 NAMIC MANIFOLD, 4 PORT * Used *[id number] 08:12 NAMIC TUBING, HIGH PRESSURE 48" 48" Used *[id number] 08:12 NYCOMED OMNIPAQUE, 300 MG, 150ML 150ML [id number] Used [id number] 08:12 [employer] BL[employer],WARM AIR CCL * Used *[id number] 08:12 TERUMO [employer] SHEATH, FR5 TERUMO (10CM) FR 5 [id number] Used SHEATH, FR6 PINNACLE [id number] 08:57 [employer] MEDICAL/ANUJ FR 6 Used DESTINATION 45CM *[id number] WIRE, ANGLE GLIDE STIFF .035 [id number] 08:12 [employer]/ANUJ 260CM Used 260CM *[id number] Equipment Model, Serial, Lot Number and Expiration Data Description Model Number Serial Number Lot Number Expiration Date BALLOON, ADMIRAL IN.PACT 6 X [id number] 02-27-2018 80 130CM SHEATH, FR6.5 PRELUDE 11CM [id number] 04-14-2019 Labs Hgb (g/dl) Hct (%) RBC (MIL/MM3) WBC (l/cumm) Platelets (thousands) 11.60-17.00 35.00-51.00 4.00-5.90 4.00-11.00 150.00-450.00 14.0 40.8 4.1 7.6 205 Glucose (mg/dl) BUN (mg/dl) Creatinine (mg/dl) BUN:Creatinine (1:x) 74.00-106.00 7.00-18.00 0.50-1.30 10.00-20.00 91 8 0.6 13.3 Na (meq/l) K (meq/l) Cl (meq/l) CO2 (mmol/L) Ca (mg/dl) 136.00-145.00 3.50-5.10 98.00-107.00 21.00-32.00 8.50-10.10 143 4.4 101 26 9.5 PT (sec) INR (PTT:PT) 9.80-11.60 0.90-1.10 10.2 1 CPK-MB (ng/ML) 0.50-3.60 Not Drawn Medication Medication Total Dose (Bolus/Oral) Medication Total Dosage/Unit 1% XYLOCAINE 5 mL FENTANYL 175 mcg HEPARIN 5000 units NTG (IC) 200 mcg VERSED 6 mg Medications (Bolus/Oral) Medication Time Given Dosage/Unit Administered By Reason FENTANYL 09/18/2016 8:29:28 AM 50 mcg Ferlitto, Daniel 50 mcg FENTANYL given in lab by Daniel Hsu RN in Left Antecubital via Peripheral IV. VERSED 09/18/2016 8:29:43 AM 2 mg Ferlitto, Daniel 2 mg VERSED given in lab by Daniel Hsu RN in Left Antecubital via Peripheral IV. FENTANYL 09/18/2016 8:39:20 AM 25 mcg Ferlitto Daniel 25 mcg FENTANYL given in lab by Daniel Hsu RN in Left Antecubital via Peripheral IV. 1% XYLOCAINE 09/18/2016 8:39:38 AM 5 mL Greg Reyes Patient arrived on 5 mL 1% XYLOCAINE given by Greg Reyes in Right Groin via Subcutaneous. VERSED 09/18/2016 8:39:45 AM 1 mg Ferlitto, Daniel 1 mg VERSED given in lab by Daniel Hsu RN in Left Antecubital via Peripheral IV. FENTANYL 09/18/2016 8:39:53 AM 25 mcg Ferlitto, Daniel 25 mcg FENTANYL given in lab by Daniel Hsu RN via Peripheral IV. Ordered by Greg Reyes. VERSED 09/18/2016 8:52:31 AM 1 mg Ferlitto, Daniel 1 mg VERSED given in lab by Daniel Hsu RN via Peripheral IV. FENTANYL 09/18/2016 8:52:49 AM 25 mcg FerlidahliaoEleey 25 mcg FENTANYL given in lab by Daniel Hsu RN via Peripheral IV. HEPARIN 09/18/2016 8:55:17 AM 5000 units Daniel Hsu 5000 units HEPARIN given in lab by Daniel Hsu RN via Peripheral IV. VERSED 09/18/2016 9:05:06 AM 1 mg Ferlitto Daniel 1 mg VERSED given in lab by Daniel Hsu RN in Left Antecubital via Peripheral IV. Ordered by Greg Polk. FENTANYL 09/18/2016 9:05:23 AM 25 mcg Ferlidahliao Daniel 25 mcg FENTANYL given in lab by Daniel Hsu RN in Left Antecubital via Peripheral IV. Ordered by Greg Reyes. NTG (IC) 09/18/2016 9:06:03 AM 200 mcg Greg Reyes 200 mcg NTG (IC) given in lab by Greg Reyes via Intra-arterial. FENTANYL 09/18/2016 9:29:59 AM 25 mcg Daniel Hsu 25 mcg FENTANYL given in lab by Daniel Hsu RN via Peripheral IV. Ordered by Greg Reyes. VERSED 09/18/2016 9:30:37 AM 1 mg Daniel Hsu 1 mg VERSED given in lab by Daniel Hsu RN in Left Antecubital via Peripheral IV. Ordered by Greg Polk. Medication (Drip) Medication Time Given Dosage/Unit Concentration/Unit Diluent (ml) Solution IV Solutions 09/18/2016 8:16:08 AM 0 mL (IV) 500 NaCl .9 Patient arrived on IV Solutions given by Greg Reyes in Left Antecubital via Peripheral IV. Pump/D rip Flow = 20 ml/hr using NaCl .9. Final Case Assessment Cardiovascular HR Rhythm NIBP Chest Pain 70 sr 158/84 0 Edema Present Skin color Skin None Normal Warm Dry Circulatory - Right Pulses Dorsalis Pedis Posterior Tibial Femoral d d 2 Scale (0,1,2,3,4,d) Circulatory - Left Pulses Dorsalis Pedis Posterior Tibial Femoral d d 2 Scale (0,1,2,3,4,d) Neurological State Oriented to time-place- Alert Moves all extremities person Respiration - General Respiration Rate SpO2 (%) O2 (lpm) (B/min) 18 98 0 Chronological Log Time Study Chronological Log 8:04:46 Patient arrived via Bed. 8:04:48 Patient Name, D.O.B, / Armband Verified By R.N. 8:04:49 Consent signed by the physician and the patient and verified by the Orchestra Conductor staff. 8:05:02 Pre-op and post- op instructions given; patient acknowledges understanding of instructions. 8:05:03 Verbal Stimulation=2 Physical Stimulation=2 Airway=2 Respiration=2 TOTAL=8. (0=absent, 1=li mited, 2=present) 8:05:12 Patient has been NPO for More than 6Hrs. 8:05:13 Skin Breakdown-none present per patient. 8:05:14 Patient Warmer Placed on the Table. 8:05:15 Disposable Defibrillator Pads Placed On Patient. 8:05:16 Katerina Prominences Protected 8:05:23 A # 20 IV was noted in the Antecubital (left). Grade = 0 0.9ns kvo 8:05:28 History and physical on the chart or being dictated. 8:10:52 NIBP STAT measurement started. 8:12:07 HR=72 bpm, TBOL=172/84 mmhg, MhU8=694.0 %, Resp=12 B/min, Bañuelos=2 Patient arrived on IV Solutions given by Greg Reyes in Left Antecubital via Peripheral IV. Pump/Drip Flow = 20 8:16:08 ml/hr using NaCl .9. 8:18:28 Reference ECG taken 8:26:03 Pressure channel 1 zeroed. 8:27:22 MD arrived. 8:29:28 50 mcg FENTANYL given in lab by Daniel Hsu RN in Left Antecubital via Peripheral IV. 8:29:43 2 mg VERSED given in lab by Daniel Hsu RN in Left Antecubital via Peripheral IV. Time Out. Correct patient, correct procedure,correct physician, ,power injector loaded with cont rast with surgical team 8:35:09 present. Time Out Concurred by MD, individual staff and BUILDING SUPERVISOR in procedure. Loaded by Daniel rashid rn, verified by Cesar Harrell. 8:36:58 Case Start 8:37:01 Verbal Stimulation=2 Physical Stimulation=2 Airway=2 Respiration=2 TOTAL=8. (0=absent, 1=silveira ited, 2=present) 8:39:20 25 mcg FENTANYL given in lab by Daniel Hsu RN in Left Antecubital via Peripheral IV. 8:39:38 Patient arrived on 5 mL 1% XYLOCAINE given by Greg Reyes in Right Groin via Subcutaneous . 8:39:45 1 mg VERSED given in lab by Daniel Hsu RN in Left Antecubital via Peripheral IV. 8:39:50 Access site was Right Femoral Artery. 8:39:53 25 mcg FENTANYL given in lab by Daniel Hsu RN via Peripheral IV. Ordered by Charles Reyes. 8:39:57 A WIRE, EXCHANGE 260CM 3MMJ 260CM was inserted via Fem Art (right). A SHEATH, FR5 TERUMO (10CM) FR 5 was exchanged in the Fem Art (right). This was necessary in ord er to 8:43:42 accomodate a larger catheter. A PIGTAIL ANG. INFINITI CATHETER FR 5 was advanced over a wire. OMNIPAQUE, 300 MG, 150ML 150ML w as used 8:44:12 for injections. 8:44:25 Wire removed 8:44:50 Through a PIGTAIL ANG. INFINITI CATHETER FR 5, The Abdominal Aorta was injected with 12 cc's of contrast. 8:45:37 A WIRE, EXCHANGE 260CM 3MMJ 260CM was inserted via Fem Art (right). After removing the current catheter a RIM SUPER TORQUE CATHETER FR 5 was advanced over a WIRE, E XCHANGE 8:45:45 260CM 3MMJ 260CM. Recorded Pressure: Ao, HR=77, Condition=Condition 1 8:47:00 (Aorta) Ao 121/54/80 8:48:22 Manual Injections down left leg through 5 taiwanese rim catheter. 8:52:31 1 mg VERSED given in lab by Daniel Hsu RN via Peripheral IV. 8:52:49 25 mcg FENTANYL given in lab by Daniel Hsu RN via Peripheral IV. 8:55:17 5000 units HEPARIN given in lab by Daniel Hsu, ABDI via Peripheral IV. 8:55:57 A WIRE, ANGLE GLIDE STIFF .035 260CM 260CM was inserted via Fem Art (right). A SHEATH, FR6 PINNACLE DESTINATION 45CM FR 6 was exchanged in the Fem Art (right). This was nece ssary in 8:56:05 order to accomodate a larger catheter. A CATHETER, FR5 TRAILBLAZER .035 135CM was advanced over a wire. OMNIPAQUE, 300 MG, 150ML 150ML was 8:57:16 used for injections. 9:01:28 Activated Clotting Time Drawn 9:01:54 A WIRE, FIRM (VIPER) 335 was inserted via Fem Art (right). 9:02:23 An CATHETER, STEALTH SOLID 2.0MM catheter was inserted into the Iliac L. Com. (L4). 9:02:55 2.0 crown in use in left SFA 9:05:06 1 mg VERSED given in lab by Daniel Hsu RN in Left Antecubital via Peripheral IV. Ordere d by Greg Reyes. 9:05:23 25 mcg FENTANYL given in lab by Daniel Hsu RN in Left Antecubital via Peripheral IV. Or dered by Greg Reyes. 9:06:03 200 mcg NTG (IC) given in lab by Greg Reyes via Intra-arterial. 9:08:49 2.0 CSI Catheter was removed 9:10:47 A BALLOON, ADMIRAL EXTREME 6 X 40 80CM 80CM was inserted over WIRE, FIRM (VIPER) 335 via the SFA (right). A BALLOON, ADMIRAL EXTREME 6 X 40 80CM 80CM over a WIRE, FIRM (VIPER) 335 in the SFA (right) was inflated 9:11:07 using a 30 LON INDEFLATOR at 6 lon for 30 sec. A BALLOON, ADMIRAL EXTREME 6 X 40 80CM 80CM over a WIRE, FIRM (VIPER) 335 in the SFA (right) w as inflated 9:15:45 using a 30 LON INDEFLATOR at 6 lon for 60 sec. 9:17:23 Balloon Removed. 9:18:24 A BALLOON, ADMIRAL IN.PACT 6 X 80 130CM 130CM was inserted over WIRE, FIRM (VIPER) 335 via the SFA (left). A BALLOON, ADMIRAL IN.PACT 6 X 80 130CM 130CM over a WIRE, FIRM (VIPER) 335 in the SFA (right) was inflated 9:18:57 using a 30 LON INDEFLATOR at 8 lon for 180 sec. A BALLOON, ADMIRAL IN.PACT 6 X 80 130CM 130CM over a WIRE, FIRM (VIPER) 335 in the SFA (right) was inflated 9:25:09 using a 30 LON INDEFLATOR at 2 lon for 45 sec. 9:29:59 25 mcg FENTANYL given in lab by Daniel Hsu RN via Peripheral IV. Ordered by St rafia Reyes. 9:30:34 Balloon Removed. 9:30:37 1 mg VERSED given in lab by Daniel Hsu RN in Left Antecubital via Peripheral IV. Orde red by Greg Reyes. 9:32:35 Manual injections down right leg through 6 taiwanese sheath. A SHEATH, FR6.5 PRELUDE 11CM FR 6.5 was exchanged in the Fem Art (right). This was necessary i n order to 9:33:18 accomodate a larger catheter. 9:33:26 Wire removed Assessment: Final Case, HR=70 BPM, Rhythm=sr, RSTW=675/84 mmhg, Chest Pain=0, Edema=None, [place] r=Normal, Skin = Warm, Dry Right Pulses: Tristan Ped=d, Post Tib=d, Femoral=2 9:34:23 Left Pulses: Tristan Ped=d, Post Tib=d, Femoral=2 Neurological: State=Alert, Ox3, CHAND Respiration: Resp=18 B/min, SpO2=98 %, O2=0 lpm 9:34:53 Catheter(s) removed without difficulty 9:34:58 In the Fem Art (right) the SHEATH, FR6.5 PRELUDE 11CM FR 6.[address] by Greg Reyes. 9:35:03 Case End 9:35:05 Sterile dressing applied to site 9:35:07 No case complications noted. 9:35:09 Cine recording checked. 9:35:12 Bedside Report will be given. 9:35:21 Contrast Scanned 9:41:07 Patient moved to [facility] End Study - Contrast Media Used In Study Contrast Total Opened (mL) Total Used (mL) Total Wasted (mL) Visipaque 175 175 0 End Study - Maximum Contrast Load Max Contrast Load (mL) 497.3 End Study - Radiation Exposure Fluoro Time (minutes) 10.3 End Study - Patient Disposition Complications Transferred To Telemetry Bed
[2016-09-18] MEDS ORDERED: ATOR40TA16 PO (09:47)
--- NOTE | 2016-09-18 10:59 | MA ---
cc: GREG REYES DATE 09/18/2016 PROCEDURE PERFORMED 1. Fluoroscopy with interpretation. 2. Descending aortography 3. Bilateral lower extremity peripheral angiography with first, second and third order visualization and interpretation. 4. Orbital rotational atherectomy of the left common femoral artery. 5. Percutaneous transluminal angioplasty with drug-coated balloon of the left common femoral artery. METHOD The risks, benefits and alternatives were discussed with the patient. The patient understood and consented to the procedure. PROCEDURE The patient was brought to the catheterization lab, placed on the catheterization table. Right groin was prepped and draped in sterile fashion. Right groin was anesthetized with 2% lidocaine. The right common femoral artery was cannulated and a 5-Filipino, 11-cm sheath was placed without difficulty. DESCENDING AORTOGRAPHY Descending aortography was performed, anterior to posterior views using 24 cc contrast injection. Good opacification. Descending aorta was widely patent. Bilateral renal arteries widely patent. PERIPHERAL ANGIOGRAPHY 1. Left common internal and external iliac arteries widely patent. Distal left common femoral artery had a 95% calcific eccentric stenosis. Left profunda widely patent. Left superficial femoral proximally has mild luminal irregularities. The remainder of the superficial femoral, popliteal, posterior tibial, peroneal vessels widely patent. The anterior tibial is diffusely diseased with 90% stenosis through the whole mid to distal segment, actually has some collateralization distally with retrograde filling. 2. The right common internal and external iliac arteries are widely patent. The right common femoral has 30% eccentric stenosis. Right profunda and superficial popliteal arteries are widely patent. The right posterior tibial peroneal vessel is widely patent. Right anterior tibial vessel has a 80% tubular stenosis proximally. PERCUTANEOUS INTERVENTION Left common iliac artery was selectively engaged with a 5-Filipino RIM catheter. A 0.035-inch, 260-cm stiff angled Glidewire was navigated carefully down into the left superficial femoral artery through the subtotal occlusion. A 6-Filipino, 45-cm Terumo Destination [place] sheath was advanced up-and-over the arch and to the level of the left external iliac artery. A 0.035-inch Trailblazer catheter was advanced behind the Glidewire down into the peroneal vessel. The wire was removed. A 0.014-inch, 335-cm Viper wire was then navigated down to the Trailblazer catheter. The Trailblazer catheter was removed. A 2.0-mm CSI atherectomy catheter was then prepped. Four sequential passes with orbital rotational atherectomy was performed to the left common femoral artery. A 6.0 x 40-mm Medtronic balloon was deployed on two sequential inflations in the left common femoral and proximal superficial femoral arteries. Then a 6.0 x 80-mm Medtronic drug-coated balloon was then deployed in the left common femoral extending into the proximal left superficial femoral artery. 200 mcg of intraarterial nitroglycerin was administered for vasospasm. Repeat angiography showed no residual stenosis, NEEMA-3 flow. The guide catheter was removed, a short sheath sewn into place to be removed. Manual hemostasis. Heparin was administered throughout the entire procedure to maintain appropriate anticoagulation. CONCLUSION 1. 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 2. Successful orbital rotational atherectomy and balloon angioplasty with drug-coated balloon in the left common femoral artery. 3. Normal descending aorta. PLAN I think this will translate well with symptomatic improvement. The patient to be continued on Plavix therapy. We will monitor for any post-procedural complications. Anticipate discharge possibly later today. Greg Reyes MD SM/SSB /9:45 AM 10:45 AM
== END 2016-09-18 18:31 | disposition home or self-care (01) ==
LOC: HSDC 06:06 → HDIC 06:07 → HSDC 18:31
PROVIDERS: ATTEND Internal Medicine
DX: I73.9 Peripheral vascular disease, unspecified (principal); G40.909 Epilepsy, unspecified, not intractable, without status epilepticus; G43.909 Migraine, unspecified, not intractable, without status migrainosus; F41.9 Anxiety disorder, unspecified; F17.200 Nicotine dependence, unspecified, uncomplicated
CPT/HCPCS: 37225; 75716; 85347; 86850; 86900; 86901; C1714; C1725; C1751; C1769; C1893; C2623; J1644; J2250; J3010; Q9967